=== PATIENT | female | born 1955 | race Caucasian/White ===

== ENCOUNTER 2023-03-17 11:00 | Outpatient (RCR) | payer MEDICARE, OTHER, SELFPAY ==
--- NOTE | 2023-02-13 11:21 | OPREHPOC ---
Outpatient Therapy Plan of Care This is a Multidisciplinary Plan of Care that may contain components documented by all disciplines (PT, OT, and ST.) PT Problem 1 PT Problem #1 Knowledge Deficit PT Goal 1 Goal Patient will be independent with HEP PT Problem 2 PT Problem #2 Pain PT Goal 1 Goal Report 0/10 pain with sit to stand transfer from bed in the AM. PT Problem 3 PT Problem #3 Impaired Range of Motion PT Goal 1 Goal Patient will achieve terminal knee extension in R LE to even stride length and correct capsular restriction in knee joint Target Visit 8 PT Problem 4 PT Problem #4 Impaired Gait PT Goal 1 Goal Patient will ambulate with even stride length bilaterally and lack of lateral trunk lean for gross functional gait correction Target Visit 8 PT Goal 2 Goal Patient will demonstrate ability to reciprocally climb stairs with no pain Target Visit 8
--- NOTE | 2023-02-13 11:22 | PTOPEVAL1 ---
Assessment and note entered by Sreedhar Amaya, PT Evaluation Information Assessment Status Evaluation Diagnosis Pain in R knee, Altered gait, LE weakness Onset 01/28/23 Subjective Information Reports that she has been taking things easy and is seeing some improvement. Woke up one day and had a lot of pain. All the pain is on the inside of the right knee at this time. No pain radiating. Right now does not feel really functionally limited but she has trouble with stairs and has to do a full flight at home. Reported Pain Level Pain Score 2: Self Report Assessment PT Clinical Summary Patient presents with objective deficits in R knee extension, gait, and hip mobility. X-rays indicate that these are not likely structural of an arthritic nature and should respond well to therapy to improved gait and stair navigation. Patient will benefit from skilled therapy to address these deficits. Plan of Care Interventions Electrical Stimulation,Hot Pack/Cold Pack,Manual Therapy,Neuro Re-education,Therapeutic Activities, Therapeutic Exercise PT Services Indicated Yes Treatment Frequency and 2x/week for 4 weeks Duration These treatments will address the objective and functional deficits as defined above. The patient will be advanced safely and appropriately in order for the patient to progress towards his/her prior level of function. Additional exercises will be introduced and as well as a comprehensive home exercise program upon discharge, if needed, ?to ensure carryover of functional gains achieved in the clinic. This treatment plan has been reviewed and agreement upon by the patient.
--- NOTE | 2023-03-17 11:32 | PTOPDC ---
Assessment and note entered by Hina Cespedes, PT Assessment Status Discharge Diagnosis Pain in R knee, Altered gait, LE weakness Onset 01/28/23 Subjective Information Pt reports is 100% improved, knee feels great. States is able to do everything she wants to and isn't taking things easy anymore Reported Pain Level Pain Score 0: Self Report Assessment PT Clinical Summary Pt reports feeling 100% improved overall, has returned to all her activities without pain. She has met all her goals. Thus patient is being discharged for completing her therapy plan of care .
== END 2023-03-17 11:44 | disposition home or self-care (01) ==
LOC: ANHHIPT 11:00
PROVIDERS: PCP Physician Assistant Medical; Visit Provider Family Medicine
DX: M25.561 Pain in right knee (principal)
CPT/HCPCS: 97110; 97112; 97140; 97161; 97530; 97750